=== PATIENT | male | born 2000 | race Caucasian/White ===

== ENCOUNTER 2024-02-11 09:38 | Emergency (ER) | payer OTHER ==
--- NOTE | 2024-02-11 11:25 | ED Physician Documentation ---
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 He states that this morning he felt "foggy". He states he did drink alcohol over the February weekend. He states that he felt like his heart was beating "heavy". No short of air. No chest pain. He states that it felt like he was not getting a "good breath" but did not feel short of breath. Lasted for a couple of hours. He states he feels normal now. Patient takes propranolol as needed for anxiety but did not take it today. No nausea or vomiting. No abdominal pain. No back pain. No fevers or chills. No cough or congestion. No history of cardiac abnormalities. No change with walking, exertion, rest. No change with eating or drinking. He states he did feel anxious this morning Review of Systems Constitutional: denies: Fever, Chills Respiratory: denies: Cough GI: denies: Nausea, Vomiting, Diarrhea Skin: denies: Rash Musculoskeletal: denies: Neck pain, Back pain Neurologic: denies: Headache PD PAST MEDICAL HISTORY - Past Medical History Past Medical History: Yes Cardiovascular: Hypertension Psych: Anxiety, ADD/ADHD - Past Surgical History Past Surgical History: No - Present Medications Home Medications: Ambulatory Orders Medication Instructions Recorded Confirmed Propranolol [Inderal] 10 mg PO PRN PRN 02/11/24 02/11/24 - Allergies Allergies/Adverse Reactions: Allergies Allergy/AdvReac Type Severity Reaction Status Date / Time No Known Drug Allergies Allergy Verified 02/11/24 10:05 - Social History Does the pt smoke?: No Smoking Status: Never smoker Does the pt drink ETOH?: Yes Does the pt have substance abuse?: No PD ED PE NORMAL - Vitals Vital signs reviewed: Yes - General General: Alert and oriented X 3, No acute distress - HEENT HEENT: PERRL, Moist mucous membranes - Neck Neck: Supple, no meningeal sign, No bony TTP - Cardiac Cardiac: RRR, No murmur, Strong equal pulses - Respiratory Respiratory: No respiratory distress, Clear bilaterally - Abdomen Abdomen: Soft, Non tender, Non distended - Derm Derm: Warm and dry, No rash - Extremities Extremities: No edema, No calf tenderness / cord - Neuro Neuro: Alert and oriented X 3 - Psych Psych: Normal mood, Normal affect Results - Vitals Vitals: Vital Signs - 24 hr 02/11/24 02/11/24 09:58 11:33 Temperature 36.8 C Heart Rate 92 85 Respiratory 18 18 Rate Blood Pressure 152/104 H 149/91 H O2 Saturation 99 97 Oxygen O2 Source Room air - EKG (time done) 1125 EKG releavant findings:: EKG personally interpreted by author of this note. Relevant findings are: Rate: Rate (enter#) (81) Rhythm: NSR [place]: Normal Intervals: Normal DC QRS: Normal Ischemia: Other (flat T wave V2) - Labs Labs: Laboratory Tests 02/11/24 11:33 POC Whole Bld Glucose 105 H PD Medical Decision Making - ED course Complexity details: reviewed results, re-evaluated patient, considered differential (No ST elevation [place], no aortic dissection, no PE, no tension pneumothorax, no aortic aneurysm), d/w patient ED course: Patient with anxiety this morning. Also felt like his heart was "beating heav y". He is asymptomatic in the emergency department did not have any shortness of breath. Lungs are clear to auscultation bilaterally. Does not have any chest pain. Do not see any indication for laboratory testing at this time. Normal EKG. No acute findings on telemetry. Patient is asymptomatic. Ambulating without difficulty. O2 sat 98 to 100% on room air. No illnesses. [place]. Patient counseled regarding signs and symptoms for which I believe and urgent re- evaluation would be necessary. Patient with good understanding of and agreement to plan and is comfortable going home at this time This document was made in part using voice recognition software. While efforts are made to proofread this document, sound alike and grammatical errors may occur. Departure - Departure Disposition: 01 Home, Self Care Clinical Impression: Palpitations Condition: Good Instructions: ED Palpitations Follow-Up: your,doctor this week [Other] Comments: Your EKG does not show any acute abnormalities. It is recommended that you make sure you are drinking plenty of water. [place]. They may want to consider a Holter monitor or Zio patch or further testing. Please return if you worsen. Forms: PCP List Discharge Date/Time: 02/11/24 11:33
[2024-02-11 11:40] VITALS: BP 149/91; O2SAT 97
== END 2024-02-11 11:33 | disposition home or self-care (01) ==
LOC: ED 09:38
DX: R00.2 Palpitations (principal); F41.9 Anxiety disorder, unspecified; I10 Essential (primary) hypertension
CPT/HCPCS: 93005; 99283; 99284